=== PATIENT | male | born 1935 | race Caucasian/White ===

== ENCOUNTER 2016-10-04 05:40 | Inpatient (IN) | payer OTHER, MEDICARE ==
--- NOTE | 2016-09-22 10:35 | PAT Medication Instructions ---
Service Date Sep 22, 2016. Current Home Medication List Cyanocobalamin (Vitamin B-12), 1,000 MCG PO QPM Losartan Potassium (Cozaar), 25 MG PO QPM Metoprolol Succinate (Metoprolol Succinate ER), 1 TAB PO QPM Saccharomyces Boulardii (Probiotic), Unknown Dose PO QPM Warfarin Sod (Jantoven), 2 MG PO SEE NOTES [[place] Xl ], 2 TAB PO QPM Medication Instructions For Your Scheduled Surgery - Instructions to be given by prescribing physician: Warfarin Sod (Jantoven), 2 MG PO SEE NOTES - Hold the following medications as of 09/23/16: [[place] Xl ], 2 TAB PO QPM - Do Not Take the following medications the night before surgery: Losartan Potassium (Cozaar), 25 MG PO QPM - Take the following medications as scheduled the night before surgery: Metoprolol Succinate (Metoprolol Succinate ER), 1 TAB PO QPM Cyanocobalamin (Vitamin B-12), 1,000 MCG PO QPM Saccharomyces Boulardii (Probiotic), Unknown Dose PO QPM If you have any questions please call us at [phone] or [phone] or [phone]
--- NOTE | 2016-09-22 11:01 | DIAGNOSTIC IMAGING REPORT ---
CHEST PREADMISSION(PA/LAT) HISTORY:80 yearsMalePAT . Preoperative exam. COMPARISON: None available. TECHNIQUE: Frontal and lateral views of the chest. FINDINGS: Cardiac silhouette is mildly enlarged. Single lead left pectoral pacer is noted which appears intact. There is atherosclerosis of the aorta. No pneumothorax, pleural effusion, overt pulmonary edema or focal airspace consolidation. Mild subsegmental coarse reticular opacities are present within the lung bases suggesting some pleural parenchymal scarring. The bones appear to be grossly intact with multilevel endplate degenerative changes throughout the spine. IMPRESSION: 1. Cardiomegaly without acute cardiopulmonary process. 2. Mild subsegmental coarse reticular opacities of the lung bases suggest some pleural-parenchymal scarring. The above report was generated using voice recognition software. It may contain grammatical, syntax or spelling errors. Electronically signed by: Ariel Williamson 09/22/2016 11:00 AM Dictated Date/Time: 09/22/2016 10:58 AM
[2016-09-22 11:16] LABS: URINE APPEARANCE CLEAR (CLEAR); URINE BILIRUBIN NEG (NEG); URINE COLOR YELLOW; URINE NITRITE NEG (NEG); URINE SPECIFIC GRAVITY 1.016 (1.000-1.030); UROBILINOGEN NEG (NEG)
[2016-09-22 11:17] LABS: BASO % 0.4 %; BASO ABS # 0.01 K/uL (0-0.2); COMPLETE YES; EOS % 1.8 %; HEMATOCRIT 40.4 % (42-52); LYMPH % 18.1 %; MANUAL MICROSCOPIC REQUIRED? NO; MEAN CELL VOLUME 96.2 fL (80-100); MEAN CORPUSCULAR HEMOGLOBIN 31.7 pg (25-34); MEAN CORPUSCULAR HGB CONC 32.9 g/dl (32-36); MEAN PLATELET VOLUME 10.9 fL (7.4-10.4); MONO % 14.1 %; NEUT % 65.6 %; PLATELET COUNT 111 K/uL (130-400); REVIEW REQ? NO; WHITE BLOOD COUNT 2.76 K/uL (4.8-10.8)
[2016-09-22 11:26] LABS: BUN/CREATININE RATIO 15.7 (10-20); CALCIUM 8.7 mg/dl (8.5-10.1); CREATININE 1.3 mg/dl (0.60-1.40); POTASSIUM 4.5 mmol/L (3.5-5.1)
[2016-10-04] VITALS (8 sets, daily range): BP systolic 124–178; BP diastolic 76–118; PULSE 70–94; TEMP 35.3–36.6; O2SAT 97–100; Ht 188 cm; Wt 107.2 kg
[~2016-10-04] VITALS: Ht 188 cm; Wt 107.2 kg
[~2016-10-04 05:40] MED LIST: CELEBREX-ALLERGY NOTED TO ORDERED MEDICATION SCH; CYAN10005 PO; LOSA25TA18 PO; OMEGA XL PO; SACC250C11 PO; TPRSR/25 PO; WARF2TAB8 PO
[2016-10-04] MEDS ORDERED: PREGABALIN 75 MG CAP PO SCH (06:00)
[2016-10-04] MEDS ORDERED: CeleBREX 200 MG CAP PO SCH (06:00)
[2016-10-04] MEDS ORDERED: CEFAZOLIN 2000 MG/60 ML D5W IV SCH (06:00)
[2016-10-04] MEDS ORDERED: LACTATED RINGER'S 1000ML 1,000 ML IV SCH (06:00)
[2016-10-04 06:35] LABS: PROTHROMBIN TIME (PATIENT) 11.2 SECONDS (9.0-12.0)
[2016-10-04] MEDS ORDERED: HYDROmorphone INJ 2 MG/ML SYR/VIAL ONE (06:35)
[2016-10-04] MEDS ORDERED: PROPOFOL IV EMULSION 10 MG/ML 20 ML VIAL IV ONE (06:35)
[2016-10-04] MEDS ORDERED: LIDOCAINE HCL 2% 2 ML VIAL (20MG/ML) ONE (06:35)
[2016-10-04] MEDS ORDERED: ROCURONIUM BROMIDE 10 MG/ML 5 ML VIAL ONE ×2 (06:35→10:56)
[2016-10-04] MEDS ORDERED: FENTANYL CITRATE INJ 50 MCG/1 ML 2 ML VIAL ONE (06:35)
[2016-10-04] MEDS ORDERED: KETAMINE HCL INJ 50 MG/ML 10 ML VIAL ONE (06:36)
[2016-10-04] MEDS ORDERED: THROMBIN 5000 UNITS KIT ONE (07:04)
[2016-10-04] MEDS ORDERED: HEPARIN SOD (PORCINE) 1000 UNIT/ML 10 ML VIAL ONE (07:04)
[2016-10-04] MEDS ORDERED: THROMBIN FOR SOLN 20000 UNIT KIT ONE (07:04)
[2016-10-04] MEDS ORDERED: BACITRACIN 50000 UNIT VIAL ONE (07:05)
[2016-10-04] MEDS ORDERED: BUPIVACAINE/EPINEPHRINE 0.5% MPF 1:200,000 10 ML VIAL ONE (07:05)
[2016-10-04] MEDS ORDERED: MIDAZOLAM HCL 1 MG/ML 2ML VIAL ONE (07:16)
[2016-10-04] MEDS ORDERED: ATROPINE SULFATE 0.1 MG/ML 5ML SYR IV PRN (07:30)
[2016-10-04] MEDS ORDERED: EpHEDrine SULFATE INJ 50 MG/ML AMP IV PRN (07:30)
[2016-10-04] MEDS ORDERED: ONDANSETRON INJ 2 MG/ML 2 ML VIAL IV PRN ×2 (07:30→10:00)
[2016-10-04] MEDS ORDERED: HYDROmorphone INJ 1 MG/ML SYR IV PRN (07:30)
--- NOTE | 2016-10-04 07:43 | History & Physical Bridge Note ---
H&P Re-Evaluation Bridge Note: I have examined the patient, reviewed the History & Physical and in the interval since the performance of the History & Physical I have noted the following changes of clinical significance: No changes noted
[2016-10-04] MEDS ORDERED: FLOSEAL HEMOSTATIC MATRIX 10ML TOP ONE (09:34)
--- NOTE | 2016-10-04 09:43 | [facility] Post Operative Brief Note ---
Immediate Operative Summary Operative Date Oct 04, 2016. Pre-Operative Diagnosis Spinal stenosis L2-L3 and L3-L4 Post-Operative Diagnosis Spinal stenosis L2-L3 and L3-L4 Procedure(s) Performed L2-L4 Decompression and Instrumented Fusion; Infuse bone graft, Autograft with use of arteriocyte Surgeon Dr Jean Baptiste Inorganic Chemical Technician Surgeon(s) Donta Okeefe PA-C Estimated Blood Loss 200mL Findings dict Specimens None as per
[2016-10-04] MEDS ORDERED: SODIUM CHLORIDE 0.9% 1000ML 1,000 ML IV SCH (09:48)
--- NOTE | 2016-10-04 09:48 | [facility] Operative Report ---
Operative Report Operative Date Oct 04, 2016. Pre-Operative Diagnosis Spinal stenosis L2-L3 and L3-L4 Post-Operative Diagnosis Spinal stenosis L2-L3 and L3-L4 Procedure(s) Performed 1. L2& 3 laminectomies 2. Pedicle screw instrumentation bilateral L2-4 with K2M Everst screws 3. Posterolateral fusion L2-4 bilateral with INFUSE BMP, local bone, BMA 4. R iliac crest bone marrow aspiration Surgeon Dr Jean Baptiste [facility] Specialist Surgeon(s) Donta Okeefe PA-C Estimated Blood Loss 200mL Findings see below Specimens None as per MD Complication(s) None Description of Procedure .lumbar After identification of the patient and the operative level they were brought to the OR where they underwent induction of general anesthesia. They were positioned prone on a Jasiel spine table with all bony prominence well-padded. Care was taken to avoid pressure on the periorbital area. The lumbosacral area was sterilely prepped and draped in the usual fashion. Antibiotics were administered, a time-out was performed, level was confirmed, and skin incision was with localized lateral fluoroscopy and a spinal needle. The skin was infiltrated with half percent Marcaine with epinephrine. I then made skin incision from the spinous process of L2-4. The dorsal fascia was incised and posterior exposure was accomplished with dissection out to the tips of the transverse processes from L2-4 bilaterally. I then packed the gutters with thrombin-soaked sponges and used fluoroscopy to confirm the operative levels with markers at the operative levels. After identification of the appropriate level I placed Gelpi retractors and proceeded to perform midline decompression. Laminectomies of L2&3 were performed in the midline with takedown of the intervening ligamentum flavum. I then used an osteotome to remove the medial facets at L2-3 and L3-4. Facet hypertrophy and degenerative changes were noted at the operative levels. I then completed decompression with Kerrison rongeurs and palpated the nerve roots were adequately decompressed at the operative levels from L2-4 bilaterally. I palpated all nerve roots were decompressed adequately. I then obtained hemostasis of epidural bleeding with bipolar cautery and Surgiflo. I then proceeded to place K2M [place] pedicle screws bilaterally at L2-4 with bony anatomy confirmed to be intact with the ball- tipped feeler. I confirmed screw length, trajectory, and position with fluoroscopy. Bone graft consisted of morselized local bone from laminectomy bone as well as bone graft wheelchair driver saturated with stem cell concentrate. I obtained stem cell concentrate using a stem cell concentration system after aspiration of bone marrow from the right iliac crest via a separate stab incisions with a Jamshidi needle. I then applied this to bone graft wheelchair driver. I then lowered the Christian frame to restore lordosis. I applied rods and end caps bilaterally with final tightening of all caps. I irrigated with bacitracin solution. I then decorticated the transverse processes bilaterally at the operative levels from L2-4 as well as facet joints with a high-speed bur. I then packed the lateral gutters and facets with the bone graft mixture consisting of: infuse BMP and a collagen sponge, tricalcium phosphate logs, stem cell concentrate, morcellized local bone, and bone graft wheelchair driver. I then confirmed hemostasis and closed in a layered fashion over a PEBBLES drain. All sponge and needle counts were correct in the case. Please note my PA-C participated in all portions of the procedure and was critical for performance of the procedure by assisting in positioning, prepping, draping, suction, retraction, and wound closure.
[2016-10-04] MEDS ORDERED: HYDROmorphone HCL 0.5MG/ML 50 ML CASSETTE ONE (09:59)
[2016-10-04] MEDS ORDERED: PROMETHAZINE HCL INJ 12.5 MG in SODIUM CHLORIDE 0.9% 50ML 50 ML IV PRN (10:00)
[2016-10-04] MEDS ORDERED: METOCLOPRAMIDE HCL INJ 5 MG/ML 2 ML VIAL IV PRN (10:00)
[2016-10-04] MEDS ORDERED: NALOXONE HCL 0.4 MG/1 ML VIAL/CARP IV PRN ×2 (10:00)
[2016-10-04] MEDS ORDERED: FAMOTIDINE 20 MG TAB PO PRN (10:00)
[2016-10-04] MEDS ORDERED: SOD PHOSPHATE/SOD BIPHOSPHATE ENEMA 132 ML BTL PR PRN (10:00)
[2016-10-04] MEDS ORDERED: HYDROmorphone HCL 0.5MG/ML 50 ML CASSETTE IV PRN (10:00)
[2016-10-04] MEDS ORDERED: LORAZEPAM 0.5 MG TAB PO PRN (10:00)
[2016-10-04] MEDS: FENTANYL CITRATE INJ 50 MCG/1 ML 2 ML VIAL IV PRN ×4 (10:00→10:15)
[2016-10-04] MEDS ORDERED: ACETAMINOPHEN 500 MG TAB PO PRN (10:00)
[2016-10-04] MEDS ORDERED: LORAZEPAM INJ 0.5 MG in SYRINGE 0 ML IV PRN (10:00)
[2016-10-04] MEDS ORDERED: MAGNESIUM HYDROXIDE SUSP 30 ML UDC PO PRN (10:00)
[2016-10-04] MEDS ORDERED: ACETAMINOPHEN IV 100 ML IV PRN (10:00)
[2016-10-04] MEDS ORDERED: BISACODYL 10 MG SUPP PR PRN (10:00)
[2016-10-04] MEDS ORDERED: ALUMINUM/MAGNESIUM SUSP 30 ML UDC PO PRN (10:00)
--- NOTE | 2016-10-04 10:45 | Anesthesiology Progress Note ---
Anesthesia Post Op Note Date & Time Oct 04, 2016 at 10:45 Vital Signs Pain Intensity: 4 Vital Signs Past 12 Hours Date Time Temp Pulse Resp B/P (MAP) Pulse Ox O2 Delivery O2 Flow Rate FiO2 10/04/16 10:36 147/87 18/17 10:34 75 11 18/17 10:34 84 11 98 18/17 10:32 135/91 1817 10:31 36.2 75 16 135/77 (89) 100 Nasal Cannula 4 10/04/16 10:29 76 29 18/17 10:29 79 29 100 18/17 10:28 77 14 100 18/17 10:28 79 14 18/17 10:27 135/77 10/04/17 10:23 83 23 18/17 10:23 82 23 100 18/17 10:22 151/88 18/17 10:22 151/88 18/17 10:19 95 15 100 18/17 10:19 95 15 100 18/17 10:19 91 15 18/17 10:19 91 15 18/17 10:16 137/91 18/17 10:16 137/91 18/17 10:14 77 28 99 18/17 10:14 73 28 18/17 10:14 73 28 10/04/17 10:14 77 28 99 18/17 10:11 130/89 18/17 10:11 130/89 18/17 10:09 76 8 100 18/17 10:09 76 8 100 18/17 10:09 70 8 18/17 10:09 70 8 18/17 10:07 144/85 18/17 10:07 144/85 18/17 10:04 81 12 95 18/17 10:04 77 12 18/17 10:04 77 12 18/17 10:04 81 12 95 18/17 10:02 133/85 18/17 10:02 133/85 18/17 09:59 79 16 100 18/17 09:59 72 16 718/17 09:59 72 16 18/17 09:59 79 16 100 10/04/16 09:57 158/94 10/04/16 09:57 158/94 10/04/16 09:54 73 12 99 10/04/16 09:54 72 12 10/04/16 09:54 72 12 10/04/16 09:54 73 12 99 10/04/16 09:51 141/78 10/04/16 09:51 141/78 10/04/16 09:50 137/88 10/04/16 09:50 137/88 10/04/16 09:49 36.1 66 13 137/88 (92) 97 Mask 10 10/04/16 09:49 72 13 10/04/16 09:49 78 13 97 10/04/16 09:49 78 13 97 10/04/16 09:49 72 13 10/04/16 05:55 36.6 82 20 178/118 97 Room Air 148/108 Notes Mental Status: alert / awake / arousable, participated in evaluation Pt Amnestic to Procedure: Yes Nausea / Vomiting: adequately controlled Pain: adequately controlled Airway Patency, RR, SpO2: stable & adequate BP & HR: stable & adequate Hydration State: stable & adequate Anesthetic Complications: no major complications apparent
[2016-10-04] MEDS ORDERED: GLYCOPYRROLATE INJ 0.2 MG/ML VIAL ONE (10:56)
[2016-10-04] MEDS ORDERED: NEOSTIGMINE METHYLSULFATE 1 MG/ML 10ML VIAL ONE (10:56)
--- NOTE | 2016-10-04 12:06 | DIAGNOSTIC IMAGING REPORT ---
LUMBAR SPINE 2 OR 3 VIEW CLINICAL HISTORY: L2-L4 DECOMPRESSION/FUSION/INTERBODY TECHNIQUE: Image intensifier COMPARISON STUDY: None FINDINGS: Image intensifier was utilized for lumbar laminectomy and fusion IMPRESSION: Image intensifier was used for lumbar laminectomy and fusion The above report was generated using voice recognition software. It may contain grammatical, syntax or spelling errors. Electronically signed by: Tee Copeland M.D. 10/04/2016 12:05 PM Dictated Date/Time: 10/04/2016 12:05 PM
[2016-10-04] MEDS: SODIUM CHLORIDE 0.9% 1000ML 1,000 ML IV SCH ×2 (12:35→23:18)
[2016-10-04] MEDS ORDERED: PNEUMOCOCCAL POLYSACCHARIDES 25 MCG/0.5 ML VIAL/SYR IM. ONE (13:45)
[2016-10-04] MEDS ORDERED: PNEUMOCOCCAL ADMINISTRATION CHARGE ONE (13:45)
[2016-10-04] MEDS: DEXAMETHASONE INJ 6 MG in SYRINGE 0 ML IV SCH ×2 (15:06→21:21)
[2016-10-04] MEDS: CEFAZOLIN IV 2,000 MG in DEXTROSE 5% 50ML 50 ML IV SCH ×2 (15:18→23:18)
[2016-10-04] MEDS: LOSARTAN POTASSIUM 25 MG TAB PO SCH (21:20)
[2016-10-04] MEDS: METOPROLOL SUCC 25MG EXT REL TAB PO SCH (21:20)
[2016-10-04] MEDS: CYANOCOBALAMIN 500 MCG TAB (VIT B-12) PO SCH (21:20)
[2016-10-04] MEDS: DOCUSATE SODIUM/SENNA 50/8.6MG TAB PO SCH (21:20)
[2016-10-05] VITALS (8 sets, daily range): BP systolic 105–144; BP diastolic 60–81; PULSE 65–91; TEMP 36.5–37.1; O2SAT 88–99
[2016-10-05] MEDS ORDERED: DC PCA SCH (06:00)
[2016-10-05] MEDS ORDERED: HYDROmorphone INJ 1 MG/ML SYR IV PRN (06:00)
[2016-10-05] MEDS: DEXAMETHASONE INJ 6 MG in SYRINGE 0 ML IV SCH (06:00)
[2016-10-05] MEDS ORDERED: HYDROmorphone INJ 0.5 MG/0.5 ML SYR IV PRN (06:00)
[2016-10-05 06:08] LABS: COMPLETE YES; HEMATOCRIT 33.3 % (42-52); IG% 0.1 %; LYMPH % 4.1 %; MEAN CELL VOLUME 97.4 fL (80-100); MEAN CORPUSCULAR HEMOGLOBIN 32.2 pg (25-34); MONO % 3.8 %; PLATELET COUNT 100 K/uL (130-400); RED BLOOD COUNT 3.42 M/uL (4.7-6.1); WHITE BLOOD COUNT 7.37 K/uL (4.8-10.8)
[2016-10-05] MEDS ORDERED: NURSING VERBAL MED ORDER ONE (06:15)
[2016-10-05 06:40] LABS: BUN/CREATININE RATIO 16.5 (10-20); CREATININE 1.4 mg/dl (0.60-1.40)
--- NOTE | 2016-10-05 07:56 | Anesthesiology Progress Note ---
Anesthesia Post Op Note Date & Time Oct 05, 2016 at 07:55 Vital Signs Pain Intensity: 0.0 Vital Signs Past 12 Hours Date Time Temp Pulse Resp B/P (MAP) Pulse Ox O2 Delivery O2 Flow Rate FiO2 10/05/16 03:54 37.1 76 16 129/79 (96) 97 Room Air 10/05/16 00:12 36.7 73 16 109/69 (82) 98 Room Air 10/04/16 23:26 Room Air 10/04/16 20:33 36.6 91 18 124/76 (92) 99 Room Air Notes Mental Status: alert / awake / arousable, participated in evaluation Pt Amnestic to Procedure: Yes Nausea / Vomiting: adequately controlled Pain: adequately controlled Airway Patency, RR, SpO2: stable & adequate BP & HR: stable & adequate Hydration State: stable & adequate Anesthetic Complications: no major complications apparent
[2016-10-05] MEDS: OXYCODONE HCL IR 5 MG TAB (IMMEDIATE RELEASE) PO PRN (08:34)
--- NOTE | 2016-10-05 15:12 | Orthopedic Progress Note ---
Orthopedic Progress Note Date of Service Oct 05, 2016. Subjective Post OP Day: 1 Reports: feeling well, Denies: chest pain, SOB, nausea / vomiting Additional Notes: Pt lying in bed after having lunch. Pain controlled at rest. States he has more discomfort with sitting at the bedside. Ambulated the hallway today without difficulty. 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 Able to do some PF with the left but weak. RLE wnl. Date Time Temp Pulse Resp B/P (MAP) Pulse Ox O2 Delivery O2 Flow Rate FiO2 10/05/16 14:54 36.7 76 18 111/70 (84) 96 Room Air 10/05/16 11:15 36.5 70 12 110/70 (83) 97 Room Air 10/05/16 07:56 36.6 80 20 120/70 (87) 97 Room Air 10/05/16 07:55 Room Air 10/05/16 07:25 Room Air 10/05/16 03:54 37.1 76 16 129/79 (96) 97 Room Air 10/05/16 00:12 36.7 73 16 109/69 (82) 98 Room Air 10/04/16 23:26 Room Air 10/04/16 20:33 36.6 91 18 124/76 (92) 99 Room Air 10/04/16 15:15 Nasal Cannula 2.0 Laboratory Results 24 Hours: Test 10/05/16 05:24 White Blood Count 7.37 K/uL Red Blood Count 3.42 M/uL Hemoglobin 11.0 g/dL Hematocrit 33.3 % Mean Corpuscular Volume 97.4 fL Mean Corpuscular Hemoglobin 32.2 pg Mean Corpuscular Hemoglobin Concent 33.0 g/dl Platelet Count 100 K/uL Mean Platelet Volume 11.0 fL Neutrophils (%) (Auto) 92.0 % Lymphocytes (%) (Auto) 4.1 % Monocytes (%) (Auto) 3.8 % Eosinophils (%) (Auto) 0.0 % Basophils (%) (Auto) 0.0 % Neutrophils # (Auto) 6.78 K/uL Lymphocytes # (Auto) 0.30 K/uL Monocytes # (Auto) 0.28 K/uL Eosinophils # (Auto) 0.00 K/uL Basophils # (Auto) 0.00 K/uL Assessment & Plan Assessment: POD 1 s/p L2-L4 Decompression and Instrumented Fusion; Infuse bone graft, Autograft with use of arteriocyte Plan: PT/OT Planning for dc on . Seen and examined at bedside. Agree with above. Encourage activity and ambulation as tolerated. Dressing change and removal of PEBBLES drain to follow. Tylor Martines D.O. Inhouse Planning Pain Management: Dilaudid, PO Tylenol, Oxy IR DVT Prophylaxis: TEDs, SCDs Discharge Planning Discharge Planning: home
[2016-10-05] MEDS: LOSARTAN POTASSIUM 25 MG TAB PO SCH (20:15)
[2016-10-05] MEDS: METOPROLOL SUCC 25MG EXT REL TAB PO SCH (20:16)
[2016-10-05] MEDS: DOCUSATE SODIUM/SENNA 50/8.6MG TAB PO SCH (20:16)
[2016-10-05] MEDS: CYANOCOBALAMIN 500 MCG TAB (VIT B-12) PO SCH (20:17)
[2016-10-06] MEDS: POLYETHYLENE (MIRALAX) 17 GM PACK PO SCH ×2 (05:09→12:00)
[2016-10-06 07:50] VITALS: BP 134/82; PULSE 70; TEMP 36.5; O2SAT 100
[2016-10-06 07:51] VITALS: O2SAT 100
[2016-10-06] MEDS: OXYCODONE HCL IR 5 MG TAB (IMMEDIATE RELEASE) PO PRN (09:09)
[2016-10-06] MEDS ORDERED: RXC5 PO (11:57)
--- NOTE | 2016-10-06 11:57 | Discharge Instructions ---
Discharge Instructions Date of Service Oct 06, 2016. Admission Reason for Admission: Lumbar Spinal Stenosis Discharge Discharge Diagnosis / Problem: same Discharge Goals Goal(s): Decrease discomfort Activity Recommendations Activity Limitations: per Instructions/Follow-up section . Instructions / Follow-Up Instructions / Follow-Up ACTIVITY RECOMMENDATIONS: SELF CARE INSTRUCTIONS AFTER THORACIC/LUMBAR FUSIONS 1. You may walk to your tolerance. It is good exercise for your legs and back. Expect some back and intermittent leg aches and pains. 2. You may perform "counter-top" level activities (make a sandwich, shaniqua with a project, etc.). 3. No bending or lifting of more than 10 pounds or back twisting of any nature (roll like a log when turning in bed). 4. You may ride in a car for 20-30 minutes at a time. No driving until after your first visit with your doctor. 5. Frequent changes of position and restricting sitting to 30 minutes at a time will help limit the amount of back spasms and stiffness you may experience. 6. You may discontinue the use of ambulatory aids (cane, crutches, etc.) once your strength and confidence allow. 7. You may replenishment merchandising associate the shower and let water strike your incision when you arrive home at least once daily. Do not take a tub bath, sit in a hot tub or go into a swimming pool until after your first recheck in the office. SPECIAL CARE INSTRUCTIONS: VERY IMPORTANT TO READ AND REVIEW A. Your surgical incision has been closed with a cosmetic suture under the skin that will dissolve in about 6 weeks. In 14 days, you can use a pair of clean scissors and cut the suture that is left outside of the skin at the ends of your incision. 1. The small skin tapes can be removed 7 days after surgery if they have not fallen off by that point. 2. You may keep the wound open to air as much as possible to promote healing after post-op day number 5 unless told otherwise by your doctor. 3. If you think the wound looks like it is becoming infected (redness or worsening drainage) and/or you are experiencing fever, chill or worsening back pain and muscle spasms, contact the office so that we may evaluate you as soon as possible. B. Complications are uncommon, but please contact us if you have any signs or symptoms of: 1. wound infection (fever higher than 102.5 degrees F, redness, separation of wound, drainage, or increasing pain from the incision) 2. blood clots in legs (pain, swelling, redness and warmth in legs) 3. urinary tract infection (fever higher than 102.5 degrees F, burning upon urination or increased frequency of urination) 4. nerve problems (inability to walk on your toes or heels, numbness, loss of bowel or bladder control) 5. any other symptoms that concern you C. Please call the office at if you have any concerns or questions about your operation or recovery. D. No smoking! Smoking drastically decreases the chance of a solid fusion. E. Do not take any anti-inflammatory medications (Indocin, Advil, Motrin, Aspirin, Naprosyn, etc.) as these may inhibit the chance of a solid fusion. Tylenol is okay to take for pain. MANAGING PAIN AFTER SPINAL SURGERY 1. Narcotic medication is intended for short-term use and will be provided for surgical pain. Surgical pain usually lasts for a period of 4-6 weeks. Narcotic medication includes Percocet, Vicodin, Darvocet, Tylenol #3 or Lortab. 2. Longer-term pain is more appropriately treated with non-narcotic medication such as Tylenol ES. 3. Muscle spasm is not appropriately treated with narcotics. Muscle relaxers such as Soma, Flexeril or Skelaxin can be used along with Tylenol ES. 4. Remember that we all live with some "aches and pains". This is not unusual or uncommon after an injury or as we get older. a. Back pain is expected and may include muscle spasms for 4 to 6 weeks after surgery. The pain should gradually improve. If the pain worsens for no apparent reason, please contact the office. b. Intermittent leg pain may also be experienced and should not be concerned about unless it worsens for no apparent reason. If so, please contact the office. 5. We will provide appropriate medication within the normal guidelines of their prescribed use. We will also be very cautious and aware of potential abuse and extended duration of patients' medication needs. a. Pain medications are for your comfort and to assist with sleep and rest so that the tissue can heal. They are not provided in order to return to normal activity and should not be used through the day. To do so or worsening pain at night can result from ongoing tissue damage and development of tolerance to the prescribed medicine. 6. Please allow 2-3 days to process refills. Prescriptions will not be mailed but must be picked up at the office. FOLLOW UP VISIT: Keep your scheduled follow-up appointment. Any questions, please call the office at . Current Hospital Diet Patient's current hospital diet: Regular Diet Discharge Diet Recommended Diet: Regular Diet Procedures Procedures Performed: 1. L2& 3 laminectomies 2. Pedicle screw instrumentation bilateral L2-4 with K2M Ever[place] screws 3. Posterolateral fusion L2-4 bilateral with INFUSE BMP, local bone, BMA 4. R iliac crest bone marrow aspiration Pending Studies Studies pending at discharge: no Medical Emergencies . Who to Call and When: Medical Emergencies: If at any time you feel your situation is an emergency, please call 911 immediately. . Non-Emergent Contact Non-Emergency issues call your: Surgeon . "Provider Documentation" section prepared by Dav Jean Baptiste. . VTE Core Measure Inpt VTE Proph given/why not?: SCD's [place] Drug Monitoring Program Search Results: patient reviewed within database, no issues identified ( checked by PAc)
--- NOTE | 2016-10-06 12:34 | Discharge Summary ---
Orthopedic Discharge Summary Admission Date/Reason Oct 04, 2016 at 07:30 Lumbar Spinal Stenosis. Discharge Date/Disposition Oct 06, 2016 Home Diagnosis Principal Diagnosis: same Procedure(s) Performed Lumbar fusion Medication Reconciliation New Medications: Oxycodone HCl (Oxycodone HCl) 5 Mg Tab 5-10 MG PO Q4H PRN for Moderate - severe pain, #90 TAB Continued Medications: Cyanocobalamin (Vitamin B-12) 1,000 Mcg Tab 1000 MCG PO QPM, TAB Losartan Potassium (Cozaar) 25 Mg Tab 25 MG PO QPM, TAB Metoprolol Succinate (Metoprolol Succinate ER) 25 Mg Tabcr 1 TAB PO QPM Saccharomyces Boulardii (Probiotic) Unknown Strength Cap Unknown Dose PO QPM Warfarin Sod (Jantoven) 2 Mg Tab 2 MG PO SEE NOTES, TAB MON, WED AND FRI - TAKES 1 MG PO QPM TU, THUR, SAT AND SUN - TAKES 2 MG QPM [[place] Xl ] () 2 TAB PO QPM Admission Physical Exam As per Admitting History & Physical. Hospital Course The patient was admitted for elective lumbar surgery and underwent the procedure without complications. They were transferred to the floor where they were hemodynamically stable. Pain was controlled with oral pain medication. They were seen by PT/OT and demonstrated safe mobilization. Drain output decreased and they had return of bowel function. They were discharged in stable condition. Discharge Instructions Please refer to the electronic Patient Visit Report (Discharge Instructions) for additional information.
[2016-10-06 13:42] VITALS: BP 134/82; PULSE 70; TEMP 36.5; O2SAT 100
== END 2016-10-06 14:04 | disposition home or self-care (01) | DRG 460 ==
LOC: C.ACU 05:40 → C.3E 07:30 → ENRESERV 10:58
PROVIDERS: ADMIT Orthopaedic Surgery Orthopaedic Surgery of the Spine; ATTEND Orthopaedic Surgery Orthopaedic Surgery of the Spine
PROC: 0SG00J1 Fusion of Lumbar Vertebral Joint with Synthetic Substitute, Posterior Approach, Posterior Column, Open Approach (ICD-10-PCS; principal; 2016-10-04 07:30)
PROC: 0SG0071 Fusion of Lumbar Vertebral Joint with Autologous Tissue Substitute, Posterior Approach, Posterior Column, Open Approach (ICD-10-PCS; principal; 2016-10-04 07:30)
DX: M48.06 Spinal stenosis, lumbar region (principal); Z79.01 Long term (current) use of anticoagulants; Z79.899 Other long term (current) drug therapy